=== PATIENT | female | born 1975 | race African-American/Black ===

== ENCOUNTER 2020-04-22 18:49 | Emergency (ER) | payer BC, SELFPAY ==
[2020-04-22 19:04] VITALS: BP 134/84; PULSE 105; RESP 14; TEMP 36.4; O2SAT 100
== END 2020-04-22 19:12 | disposition left against medical advice (07) ==
LOC: EXPBETH 18:59
PROVIDERS: Emergency Provider Nurse Practitioner
DX: Z53.21 Procedure and treatment not carried out due to patient leaving prior to being seen by health care provider (principal)
CPT/HCPCS: 99199

== ENCOUNTER 2022-03-03 19:34 | Emergency (ER) | payer OTHER, SELFPAY ==
--- NOTE | 2022-03-03 19:37 | ED.URI ---
HPI - URI/Sore Throat General Chief Complaint: Upper Respiratory Infection Stated Complaint: trouble breathing, productive cough Time Seen by Provider: 03/03/22 19:37 Source: patient and RN notes reviewed History of Present Illness HPI Narrative: patient is a 46-year-old female who presents to the Urgent Care with complaints of a cough for the last 3 weeks. Patient states that she has tried [id number] allergy medication and DayQuil and NyQuil. Patient states that it seems to be worse at night expression when she lays down causing severe coughing fits and difficulty catching her breath. Patient currently denies any shortness of breath or chest pains. Denies any known ill exposures. Denies any recent diagnosis of influenza or COVID. No other acute complaints. No acute distress noted. Patient aware of the plan care. Some parts of this dictation were generated by voice recognition software and may contain typographical and/or grammatical inaccuracies. Related Data Allergies Allergy/AdvReac Type Severity Reaction Status Date / Time No Known Allergies Allergy Verified 03/03/22 19:41 Review of Systems Review of Systems: CONSTITUTIONAL: Denies fever, chills, or sweats. EYES: Denies visual changes, redness, or discharge. ENT: Denies rhinorrhea, congestion, sore throat, or otalgia. CARDIOVASCULAR: Denies chest pain, palpitations, or edema. RESPIRATORY: reports of cough with coughing fits and intermittent dyspnea GASTROINTESTINAL: Denies abdominal pain, nausea, vomiting, or diarrhea. GENITOURINARY: Denies dysuria or hematuria. SKIN: Denies rash or itching. MUSCULOSKELETAL: Denies back pain, joint pain, or myalgia. NEUROLOGIC: Denies headache, numbness, or weakness. All other systems reviewed are negative, except as documented in HPI. PMFSH Comments At the time of my signature, I reviewed and agree with the nursing past medical, surgical, social, and family history. There is no relevant family history pertinent to the patient complaint. Exam Narrative: GENERAL: This is a well-nourished, well-developed patient, in no apparent distress. HEAD: normocephalic, atraumatic. EYES: PERRL. Sclera clear/white. Vision is grossly intact. EARS: External ears normal, auditory canals clear and without drainage, TMs normal without perforation. Hearing grossly intact. NOSE: External nose normal with no obvious nasal discharge, nares without redness, no rhinorrhea. THROAT: Mucous membranes moist, posterior pharynx clear. Moderate postnasal drainage NECK: Neck supple, non-tender without lymphadenopathy, masses or thyromegaly. CARDIOVASCULAR: Regular rate and rhythm without murmurs, gallops, or rubs. RESPIRATORY: Hoarseness cough noted on exam.Clear to auscultation. Breath sounds equal bilaterally. No wheezes, rales, or rhonchi. SKIN: warm, intact with no suspicious lesions or rash, good texture and turgor. NEURO: awake, alert, and oriented to person, place and time. There were no obvious focal neurologic abnormalities. EXTREMITIES: No clubbing, cyanosis, or edema. Course Course Level of Care: Express Care Visit Vital Signs Vital signs: Vital Signs Temperature 97.3 F L 03/03/22 19:38 Pulse Rate 88 03/03/22 19:38 Respiratory Rate 20 03/03/22 19:38 Blood Pressure 105/70 03/03/22 19:38 Pulse Oximetry 100 03/03/22 19:38 Oxygen Delivery Room Air 03/03/22 19:38 Temperature 97.3 F L 03/03/22 19:38 Pulse Rate 88 03/03/22 19:38 Respiratory Rate 20 03/03/22 19:38 Blood Pressure 105/70 03/03/22 19:38 Pulse Oximetry 100 03/03/22 19:38 Oxygen Delivery Room Air 03/03/22 19:38 Reviewed MDM - URI/Sore Throat MDM Narrative Medical decision making narrative: Advised the patient to complete the oral antibiotic regimen as prescribed. Be sure to eat and drink the medications. Complete steroid regimen as prescribed. Would advise starting steroid in the morning to avoid keeping you up at night. Use t
[2022-03-03 19:38] VITALS: BP 105/70; PULSE 88; RESP 20; TEMP 36.3; O2SAT 100
== END 2022-03-03 19:47 | disposition home or self-care (01) ==
PROVIDERS: Emergency Provider Nurse Practitioner Family
DX: J40 Bronchitis, not specified as acute or chronic (principal)
CPT/HCPCS: 99213; G0463

== ENCOUNTER 2023-03-22 19:49 | Emergency (ER) | payer BC, SELFPAY ==
[2023-03-22 19:50] VITALS: BP 130/88; PULSE 92; RESP 16; TEMP 36.4; O2SAT 100
--- NOTE | 2023-03-22 19:51 | ED.URI ---
HPI - URI/Sore Throat General Chief Complaint: Upper Respiratory Infection Stated Complaint: Cough/Congestion/Chills Time Seen by Provider: 03/22/23 19:51 Source: patient Mode of arrival: ambulatory Limitations: no limitations History of Present Illness HPI Narrative: Lorraine is a 47-year-old female patient presenting to the clinic today with complaints of cough, congestion, and chills x3 days. She reports chills of improve is still having cough and congestion is keeping her up at night. Denies any fever, sore throat, or body aches. MD elicited complaint: nasal congestion Related Data Allergies Allergy/AdvReac Type Severity Reaction Status Date / Time No Known Allergies Allergy Verified 03/22/23 19:52 Review of Systems Review of Systems: Pertinent positives per HPI. Patient denies any fever, chills, rash, headache, visual changes, dizziness, shortness of breath, chest pain, palpitations, nausea, vomiting, diarrhea, constipation, abdominal pain, or any urinary issues. PMFSH Comments At the time of my signature, I reviewed and agree with the nursing past medical, surgical, social, and family history. There is no relevant family history pertinent to the patient complaint. Exam Narrative: General: Well-developed, well nourished, in no apparent distress Head: Normocephalic, atraumatic Eyes: Pupils equally round and reactive to light bilaterally, EOM intact, sclera and conjunctive clear, no discharge, lids normal Ears: TMs intact and clear, ear canals clear, no drainage, grossly hearing normal. Right ear lobe mild swelling and redness-tender to palpation Nose: Nares patent, clear nasal discharge, mild inflammation, no sinus tenderness. Mouth: Oral pharynx without lesions or masses, good dentition, MMM. Neck: Supple, trachea midline, no enlargement of anterior or posterior cervical nodes, no thyroid masses or goiter palpable. Cardio: Regular rate and rhythm, s1 and s2 normal, no murmur appreciated. Resp: Clear to auscultation bilaterally, no rhonchi, rales, wheezing or rubs Course Course Emergency Course: Portions of this record may have been created with voice recognition software. Level of Care: Express Care Visit Vital Signs Vital signs: Vital signs reviewed MDM - URI/Sore Throat MDM Narrative Medical decision making narrative: At the time of visit patient is resting comfortably on the exam table. Offer to do COVID testing and patient declined. Patient would just like something for the cough. Prescription for Tessalon Perles was sent to the pharmacy. Patient is also concerned about a reoccurring ear lobe infection to the right ear. Prescription for mupirocin was sent to the pharmacy and supportive measures were discussed with the patient she voiced understanding of discharge instructions and agrees to treatment plan. Differential Diagnosis Differential diagnosis: Likely upper respiratory infection, otitis media, sinusitis, viral infection, bronchitis, influenza, pharyngitis and other (COVID) Discharge Plan Discharge Clinical Impression: Infection of skin of right ear lobe URI (upper respiratory infection) Qualifiers: URI type: unspecified URI Qualified Code(s): J06.9 - Acute upper respiratory infection, unspecified Patient Disposition: Home, Self-Care Condition: Stable Instructions: Antibiotic Form, Upper Respiratory Infection (ED) Additional Instructions: Take prescription medications only as prescribed-Tessalon Perles and mupirocin cream Increase fluids and stay well hydrated Tylenol/motrin for pain/fever Flonase and OTC antihistamines as directed Vicks vapor rub to open sinuses Sinus rinses for congestion Cepacol spray, cough drops, throat lozenges, warm tea with honey/lemon, gargle salt water to soothe throat BRAT diet for diarrhea Clear liquids x 24 hours then advance as tolerated for nausea/vomiting Go to the ED if you develop a worsening in your condition- h
== END 2023-03-22 20:08 | disposition home or self-care (01) ==
PROVIDERS: Emergency Provider Nurse Practitioner Family; PCP Internal Medicine
DX: J06.9 Acute upper respiratory infection, unspecified (principal); H60.391 Other infective otitis externa, right ear
CPT/HCPCS: 99213; G0463

== ENCOUNTER 2023-12-07 19:52 | Emergency (ER) | payer BC, SELFPAY ==
[2023-12-07 19:59] VITALS: BP 157/89; PULSE 79; RESP 15; O2SAT 79
--- NOTE | 2023-12-07 23:31 | ED.EYEPROB ---
HPI - Eye Problem General Chief complaint: Eye Problems Stated complaint: Right Eye Irritation Time Seen by Provider: 12/07/23 20:06 Source: patient, RN notes reviewed and old records reviewed Mode of arrival: ambulatory Limitations: no limitations History of Present Illness HPI Narrative: 40-year-old female to Express Care for complaint of right eye redness, tearing, pain, photosensitivity since upon wakening this morning. Patient states that she has attempted flush her eye several times with water and saline solution without relief. Patient endorses sensation of foreign body. Patient states that she has attempted to go to 3 other urgent cares today and was turned away because they were too full. Patient reports taking 600 mg ibuprofen prior to arrival. Patient denies prior injury, pertinent medical history, allergies, recent illness, potential known cause. Patient states that she sees an garde manger annually. Patient uncomfortable in exam room. Respirations even and nonlabored. Patient no acute distress. Related Data Allergies Allergy/AdvReac Type Severity Reaction Status Date / Time No Known Allergies Allergy Verified 03/22/23 19:52 Review of Systems Review of Systems: All systems reviewed & are unremarkable except as noted in HPI and below Constitutional: Constitutional: Reports no additional constitutional complaints Eyes: Eyes: Reports as per HPI, Denies change in vision, Denies diplopia, Reports eye discharge ( Right), Reports irritation ( right), Denies loss of peripheral vision, Denies loss of vision, Reports eye pain ( right) and Reports photophobia ( right) ENT: Reports system reviewed and no additional complaints, except as documented Cardiovascular: Cardiovascular: Reports no additional cardiovascular complaints, Denies chest pain and Denies dyspnea Respiratory: Respiratory: Reports no additional respiratory complaints, Denies cough and Denies dyspnea Musculoskeletal: Musculoskeletal: Reports no additional musculoskeletal complaints Neurologic: Reports system reviewed and no additional complaints, except as documented Psychiatric: Psychiatric: Reports no additional psychiatric complaints PMFSH Comments At the time of my signature, I reviewed and agree with the nursing past medical, surgical, social, and family history. There is no relevant family history pertinent to the patient complaint. Exam Const: General: cooperative, healthy appearing, no acute distress, alert, in distress moderate, uncomfortable and well nourished Nutritional Appearance: well nourished Orientation/consciousness: patient oriented x3 Limitations: no limitations HENMT: Head: normal to inspection Ears: external ears normal Face/Nose/Sinus: Normal external nose present, Normal nares present, normal facial exam, No erythema and No edema Face and sinus: normal facial exam, no erythema and no edema Mouth: Yes Normal oral and palatal mucosa present Eyes: Alignment and Position: alignment normal and position normal Periorbital: periorbital findings normal Eyelids: eyelids normal Conjunctivae: conjunctival abnormality right conjunctival injection diffuse and discharge mucoid Sclera: scleral abnormality right scleral exudate mucoid, scleral injection diffuse and scleral tenderness Cornea: corneas normal and fluorescein used Pupils: Equal, round and reactive pupils present, Pupils normal by confrontation and Pupil accommodation reflex normal Other: eye kit used. Prior to fluorescein staining, foreign body visualized and removed successfully. Fluorescein used with black light to confirm absence of corneal abnormalities. Patient reported relief of symptoms with tetracaine. I flushed extensively with saline solution. Patient tolerated procedure well and endorses no sensation of foreign body and improvement in pain Neck: Neck: normal visual inspection, full ROM and no meningeal signs Lymphatic: no lymphadenopathy noted and no
== END 2023-12-07 20:27 | disposition home or self-care (01) ==
PROVIDERS: Emergency Provider Nurse Practitioner Family; PCP Internal Medicine
DX: H57.11 Ocular pain, right eye (principal)
CPT/HCPCS: 99213; A9270; G0463

== ENCOUNTER 2024-03-10 12:40 | Emergency (ER) | payer BC, SELFPAY ==
--- NOTE | ~2024-03-10 | XR_ITS ---
Clinical Indication: Cough PA and lateral views of the chest: Comparison: None Findings: The lungs are clear, without evidence of focal consolidation or pleural effusion. Cardiome diastinal silhouette is within normal limits. Bones and soft tissues are unremarkable. Impression: Normal chest. Reviewed, dictated and finalized at location . R STANDARDS DIRECTOR Impression: Normal chest.
[2024-03-10 12:44] VITALS: BP 113/77; PULSE 111; RESP 20; TEMP 36.4; O2SAT 98
--- NOTE | 2024-03-10 13:01 | ED.GENADULT ---
HPI - General Adult General Chief complaint: Upper Respiratory Infection Stated complaint: cough/chest tight/wheezing Source: patient Mode of arrival: ambulatory Limitations: no limitations History of Present Illness HPI narrative: Patient presents for evaluation of sick symptoms. She reports a cough for about 1 week. Cough is productive of clear/white sputum. She denies any shortness of breath. She has experienced a sore throat but that is improving. No fever, chills, nausea, vomiting, diarrhea. No recent sick contacts to her knowledge. She does not smoke. She took TheraFlu but symptoms persist. Related Data Allergies Allergy/AdvReac Type Severity Reaction Status Date / Time No Known Allergies Allergy Verified 03/10/24 12:55 Review of Systems Review of Systems: CONSTITUTIONAL: Denies fever, chills, or sweats. EYES: Denies visual changes, redness, or discharge. ENT: Reports sore throat. Denies rhinorrhea, congestion, or otalgia. CARDIOVASCULAR: Denies chest pain, palpitations, or edema. RESPIRATORY: Reports cough. Denies SOB. GASTROINTESTINAL: Denies abdominal pain, nausea, vomiting, or diarrhea. GENITOURINARY: Denies dysuria or hematuria. SKIN: Denies rash or itching. MUSCULOSKELETAL: Denies back pain, joint pain, or myalgia. NEUROLOGIC: Denies headache, numbness, dizziness, or weakness. PSYCHIATRIC: Denies anxiety or depression. PMFSH Past Medical History Medical History No pertinent past medical history Surgical History Surgical History No pertinent past surgical history Family History Family History Mother Family history non-contributory Social History Social History Smoking status: Never smoker Alcohol intake: never Substance use: never Gender identity (if verbalized by the patient): Female Spiritual care concerns: No Exam Narrative: GENERAL: Well-appearing, well-nourished, and in no acute distress. HEAD: Normocephalic, atraumatic. EYES: PERRLA and EOMI. ENT: Nares clear, no rhinorrhea or epistaxis. Mucous membranes moist. There is posterior pharyngeal erythema without exudate. Uvula is midline. Bilateral TMs pearly [place] nonbulging NECK: Supple. No adenopathy or masses. No carotid bruits or JVD CHEST: Clear to auscultation. No respiratory distress. No wheezes rales or rhonchi HEART: Regular rate and rhythm. No murmur heard. Normal peripheral pulses. ABDOMEN: Soft, nontender, nondistended, normal active bowel sounds. EXTREMITIES: Normal range of motion. No edema. SKIN: Warm, dry, no rash. NEURO: No focal deficits. Alert and oriented x3. PSYCH: Normal mood and affect. Course Course Emergency Course: This is a 48-year-old female who presented for evaluation of respiratory symptoms. Chest x-ray negative. Exam is consistent with bronchitis. Will discharge with prednisone and albuterol. She may purchase intake dextromethorphan as needed for cough. She should follow-up with her primary provider and go to the emergency department for worsening symptoms. Patient is in agreement with plan of care. Level of Care: Express Care Visit Vital Signs Vital signs: Vital Signs Temperature 36.4 C 03/10/24 12:44 Pulse Rate 111 H 03/10/24 12:44 Respiratory Rate 20 03/10/24 12:44 Blood Pressure 113/77 03/10/24 12:44 Pulse Oximetry 98 03/10/24 12:44 Oxygen Delivery Room Air 03/10/24 12:44 Temperature 36.4 C 03/10/24 12:44 Pulse Rate 111 H 03/10/24 12:44 Respiratory Rate 20 03/10/24 12:44 Blood Pressure 113/77 03/10/24 12:44 Pulse Oximetry 98 03/10/24 12:44 Oxygen Delivery Room Air 03/10/24 12:44 Medical Decision Making Vital Signs Vital Signs: Vital Signs Temperature 36.4 C 03/10/24 12:44 Pulse Rate 111 H 03/10/24 12:44 Respiratory Rate 20 03/10/24 12:44 Blood Pressure 113/77 03/10/24 12:44 Pulse Oximetry 98 03/10/24 12:44 Oxygen Delivery Room Air 03/10/24 12:44 Temperature 36.4 C 03/10/24 12:44 Pulse Rate 111 H 03/10/24 12:44 Respiratory Rate 20 03/10/24 12:44 Blood Pressure 113/77 03/10/24 12:44 Pulse Oximetry 98 03/10/24 12:44 Oxygen Delivery Room Air 03/10/24 12:44 Imaging Data Radiologist's impression: Clinical Indication: Cough PA and lateral views of the chest: Comparison: None Findings: The lungs are clear, without evidence of focal consolidation or pleural effusion. Cardiomediastinal silhouette is within normal limits. Bones and soft tissues are unremarkable. Impression: Normal chest. Discharge Plan Discharge Clinical Impression: Bronchitis Patient Disposition: Home, Self-Care Condition: Stable Instructions: Antibiotic Form, Acute Bronchitis (ED) Additional Instructions: Make sure to stay well hydrated Delsym(Dextromethorphan) should help with cough Patient Language: [place] Prescriptions: New prednisone 50 mg tablet 50 mg PO DAILY Qty: 5 0RF albuterol sulfate 90 mcg/actuation HFA aerosol inhaler 2 puff inhalation QID PRN (Reason: shortness of breath or wheezing) Qty: 8.5 0RF Follow-up/Referrals: Ar,Vaughn Schaffer MD [Primary Care Provider] - Stand Alone Forms: Work/School Release IP Time of Disposition: 13:38
== END 2024-03-10 13:40 | disposition home or self-care (01) ==
PROVIDERS: Emergency Provider Nurse Practitioner; PCP Internal Medicine
DX: J40 Bronchitis, not specified as acute or chronic (principal)
CPT/HCPCS: 71046; 99213; G0463

== ENCOUNTER 2024-12-09 18:20 | Emergency (ER) | payer BC, SELFPAY ==
--- OUTSIDE RECORDS SUMMARY | 2024-12-09 18:23 | XMS_ITS | Clinical Summary ---
Author Organization [facility] Building [facility] Address [address] [place] [address] Care Team Providers Care Timber Sizer Name Role Phone Junie Hua MD Primary Care Provider Nathen Montalvo MD Unavailable [phone] Allergies No known active allergies Medications multivitamin with iron tablet Take 1 tablet by mouth daily Active estradioL (ESTRACE) 1 mg tablet Take 1 tablet (1 mg total) by mouth daily 90 tablet 3 06/24/2024 Active Active Problems Problem Noted Date Diagnosed Date Degeneration of intervertebral disc of lumbar re gion 12/09/2014 Overview (07/28/2016): Degenerative disc disease, lumbar Resolved Problems Problem Noted Date Diagnosed Date Resolved Date Uterine fibroid 05/22/2024 06/18/2024 Pelvic and perineal pain 03/06/2024 Dyspareunia, female 03/06/2024 06/18/19 Pelvic pressure in female 03/06/2024 Uterine leiomyoma 09/20/2023 06/18/2024 Assessment & Plan (04/01/2024 10:14 PM HR OPERATIONS ADVISOR): 16 wk enlarging fibroid uterus filling the pelvis with decreased mobility and lower uterine segment involvement. I recommend hysterectomy, and patient is ready for surgery. I discussed options of laparoscopic approach versus SAVANNAH. Given size of uterus and dominant 11 cm fibroid and lower segment involvement with need to morcellate, recommend proceeding with SAVANNAH. Patient prefers SAVANNAH as she desires specimen removed intact. Will consider BSO. I have discussed benefits, alternatives and risks including bleeding, infection, anesthesia risk, risk of injury to bowel, bladder, ureter or blood vessel. Patient wishes to proceed. Nature of procedure and recovery discussed. Assessment & Plan (09/20/2023 2:55 PM CDT): Patient presents today for discussion of large, fibroid uterus. She only experiences intermittent pelvic pressure and discomfort. She did decline pelvic exam today. We are going to repeat her ultrasound at the end of September which will be 3 months from her initial scan to check stability of the fibroid. Her cycles are manageable and she is not really having any consistent discomfort. I do think it is reasonable to conservatively manage. If she would develop changes in her cycle or intensity of pain, surgical intervention may be warranted. The patient is agreeable to the plan. Further plan will be pending her ultrasound results at the end of September. She will call with any further questions or concerns. Surgical History Surgery Date Site/Laterality Comments MOHS SURGERY HYSTEROSCOPY 05/22/2024 total abdominal OOPHORECTOMY 05/21/2024 Bilateral SALPINGECTOMY 05/21/2024 Bilateral Social History Tobacco Use Types Packs/Day Years Used Date Smoking Tobacco: Never Smokeless Tobacco: Never Tobacco Cessation:Counseling Given: Not Answered [facility] Utilities Answer Date Recorded In the past 12 months has [employer], gas, oil, or water [employer] threatened to shut off services in your home? No 05/24/2024 Social Connection and Isolation Panel Answer Date Recorded In a typical week, how many times do you talk on the phone with family, friends, or neighbors? More than three times a week 05/24/2024 How often do you get togethe r with friends or relatives? More than three times a week 05/24/2024 How often do you attend chur ch or yazdanism services? Never 05/24/2024 Do you belong to any clubs o r organizations such as restoration groups, unions, fraternal or athletic groups, or school groups? No 05/24/2024 How often do you attend meet ings of the clubs or organizations you belong to? Never 05/24/2024 Are you , , di vorced, , never , or living with a partner? 05/24/2024 AUDIT-C Answer Date Recorded Q1: How often do you have a drink containing alc ohol? Monthly or less 05/22/2024 Q2: How many drinks containi ng alcohol do you have on a typical day when you are drinking? 1 or 2 05/22/2024 Q3: How often do you have si x or more drinks on one occasion? Never 05/22/2024 Overall Financial Resource Strain (CARDIA) Answe r Date Recorded How hard is it for you to pa y for the very basics like food, housing, medical care, and heating? Not hard at all 05/24/2024 PHQ-2 Answer Date Recorded PHQ-2 Total Score (If total score is 3 or more points, staff should administer the PHQ-9) 0 09/20/2023 Hunger Vital Sign Answer Date Recorded Within the past 12 months, y ou worried that your food would run out before you got the money to buy more. Never true 05/24/19 25 Within the past 12 months, t he food you bought just didn't last and you didn't have money to get more. Never true 05/24/2024 PRAPARE - Transportation Answer Date Re corded In the past 12 months, has l ack of transportation kept you from medical appointments or from getting medications? No 04/26 In the past 12 months, has l ack of transportation kept you from meetings, work, or from getting things needed for daily living? No 05/24/2024 Housing Stability Vital Sign Answer Kemal e Recorded In the last 12 months, was t here a time when you were not able to pay the mortgage or rent on time? No 05/24/2024 In the past 12 months, how m any times have you moved where you were living? 0 05/24/2024 At any time in the past 12 m [facility], were you homeless or living in a fdc (including now)? No 05/24/2024 Personal Safety Answer Date Recorded Have you ever been in or are you currently in a harmful physical or emotional relationship or is someone making you feel afraid or unsafe? Denies 05/22/2024 Comments No Sex and Gender Information Value Date Recorded Sex Assigned at Not on file Legal Sex Female 2:14 PM HR OPERATIONS ADVISOR Gender Identity Not on file Sexual Orientation Not on file Obstetrics History Para Term AB IAB SAB Ectopic Multiple Livin g Live Births 0 0 0 0 0 0 0 0 0 0 0 Last Filed Vital Signs Vital Sign Reading Time Taken Comments Blood Pressure 120/82 07/22/2024 8:16 AM CDT Pulse 82 05/24/2024 7:45 AM HR OPERATIONS ADVISOR Temperature 36.3 C (97.3 F) 05/24/2024 7:45 AM HR OPERATIONS ADVISOR Respiratory Rate 18 05/24/2024 7:45 AM HR OPERATIONS ADVISOR Oxygen Saturation 99% 05/24/2024 7:45 AM HR OPERATIONS ADVISOR Inhaled Oxygen Concentration - - Weight 76.7 kg (169 lb) 09/06/2024 8:18 AM CDT Height 162.6 cm (5' 4) 09/06/2024 8:18 AM CDT Body Mass Index 29.01 09/06/2024 8:18 AM CDT Plan of Treatment Health Maintenance Due Date Last Done Comments Colon Cancer Screening-Colonoscopy 1975 Hepatitis C Screening 1975 DTaP/Tdap/Td Vaccine (1 - Tdap) 1986 Hepatitis B Screening 1993 Regular Well Visit/Exam 18-64 1993 Covid-19 Vaccine (3 - 2023-2 5 season) 2023 10/28/2020, 10/07/2020 Depression Screening 09/19/2024 09/20/2023 Influenza Vaccine (#1) 2024 , 02/18/2020, 12/31/2014 Breast Cancer Screening-Mammogram 09/06/2025 09/06/2024, 05/19/2023, 05/19/2023 Pneumococcal vaccine <65 Aged Out No longer eligible based on patient's age to complete this topic Procedures Procedure Name Priority Date/Time Associated Diagnosis Comments DIAGNOSTIC MAMMOGRAM BILATERAL W GERARD Schedule Routine, Read Routine (OP Routine) 09/06/2024 8:34 AM CDT Abnormal mammogram of left breast from Last 3 Months or Most Recently Relevant to Health Maintenance Results * DIAGNOSTIC MAMMOGRAM BILATERAL W GERARD (09/06/2024 8:34 AM CDT) Anatomical Region Laterality Modality Breast Bilateral Mammography 09/06/2024 10:0 9 AM CDT Impressions 09/06/2024 10:09 AM CDT Bilateral simple and minimally complicated cysts are benign. No mammographic or sonographic evidence of malignancy. OVERALL FINAL ASSESSMENT: BI-RADS Category 2: Benign. RECOMMENDATION: Annual screening mammography is recommended. Electronically signed by: Karol Isbell M.D. Narrative 09/06/2024 10:09 AM CDT EXAMINATION: BILATERAL DIGITAL DIAGNOSTIC MAMMOGRAM INCLUDING CAD AND BILATERAL DIGITAL BREAST TOMOSYNTHESIS; BILATERAL BREAST SONOGRAM HISTORY: Abnormal screening study of 15 months ago, additionally, follow-up lesions dating back to 2018 COMPARISON: 05/19/2023, 07/14/2017 TECHNIQUE: Full field digital mammographic views of BOTH breasts were performed, including computer aided detection (CAD) and BILATERAL digital breast tomosynthesis (DBT). Directed ultrasound evaluation of BOTH breasts was performed. BREAST PARENCHYMAL COMPOSITION: The breasts are heterogeneously dense, which may obscure small masses. MAMMOGRAM FINDINGS: Circumscribed left breast lesions are identified at the 4 o'clock position and 11 o'clock position of the left breast. Additionally, asymmetry at the 3 o'clock position is again identified. These findings are new or more prominent than on the previous available study. No new dominant density or suspicious microcalcification is appreciated on the right. Previous right breast cystic cluster is unchanged in appearance. SONOGRAM FINDINGS: Targeted bilateral breast ultrasound Targeted right breast ultrasound was performed in the region of interest. At the 10 o'clock position 4 cm from the nipple there is a lobulated cystic lesion measuring 9 mm x 5 mm x 6 mm. This is benign. Targeted left breast ultrasound was performed in the regions of interest. Again identified at the 3 o'clock position 3 cm from the nipple is a hypoechoic cystic lesion measuring 5 mm. This has not significantly changed and is benign. At the 4 o'clock position 3 cm from the nipple there is an oval simple cyst measuring 2.5 cm. This is larger than on the previous study but has a simple appearance and is benign. At the 6 o'clock position 4 cm from the nipple there is an oval hypoechoic cystic lesion measuring 1.2 cm. This is benign. At the 11 o'clock position 4 cm from the nipple there is a 1.4 cm hypoechoic cyst. This correlates with the mammographic finding and is benign. Nathen Montalvo MD IMG MAMMO PROCEDURES Final Result from Last 3 Months or Most Recently Relevant to Health Maintenance Insurance ANTHEM ACCESS CHOICE ANTHEM ACCESS CHOICE Advance Directives For more information, please contact: [phone] * Full Code (Latest Code Status on File) Date Activated Date Inactivated Comments 05/22/2024 12:59 PM 05/24/2024 6:43 PM Care Teams Timber Sizer Relationship Specialty Start Date End Date Junie Hua MD PCP - General Family Medicine 07/25/23 Nathen Montalvo MD [address] [place] [id number] Civil Structural Engineer Obstetrics and Gynecology 05/24/24
--- OUTSIDE RECORDS SUMMARY | 2024-12-09 18:23 | XMS_ITS | Clinical Summary ---
Author Organization [facility] Address [address] [place] [address] Phone Care Team Providers Care Management Instructor Name Role Phone Vaughn Joyner MD Primary Care Provider [phone] Allergies No known active allergies Medications diclofenac (VOLTAREN) 50 MG Tablet Delayed Response Take 1 Tablet by mouth 2 times daily as needed for Mild or more severe pain. 60 Tablet 3 08/22/2023 Active etodolac (LODINE) 400 MG Tablet Take 1 Tablet by mouth 2 times daily. With food. 30 Tablet 09/07/2023 Active Active Problems No known active problems Family History Medical History Relation Name Comments No Known Problems Brother No Known Problems Father No Known Problems Mother No Known Problems Sister Relation Name Status Comments Brother Alive Father Alive Mother Alive Sister Alive Social History Tobacco Use Types Packs/Day Years Used Date Smoking Tobacco: Never Passive Smoke Exposure: Never Smokeless Tobacco: Never Tobacco Cessation:Counseling Given: No Alcohol Use Standard Drinks/Week Comments No 0 (1 standard drink = 0.6 oz pur e alcohol) [facility] Utilities Answer Date Recorded In the past 12 months has [employer] electric, gas, oil, or water company threatened to shut off services in your home? No 08/20/2023 Social Connection and Isolation Panel Answer Date Recorded In a typical week, how many times do you talk on the phone with family, friends, or neighbors? More than three times a week 08/20/2023 How often do you get togethe r with friends or relatives? More than three times a week 08/20/2023 How often do you attend chur or catholic services? Patient declined 08/20/2023 Do you belong to any clubs o r organizations such as moravian groups, unions, fraternal or athletic groups, or school groups? Patient declined 08/20/2023 How often do you attend meet ings of the clubs or organizations you belong to? Patient declined 08/20/2023 Are you , , di vorced, , never , or living with a partner? Patient declined 08/20/2023 AUDIT-C Answer Date Recorded Q1: How often do you have a drink containing alc ohol? Patient declined 08/20/2023 Q2: How many drinks containi ng alcohol do you have on a typical day when you are drinking? Patient declined 08/20/2023 Q3: How often do you have si x or more drinks on one occasion? Patient declined 08/20/2023 Overall Financial Resource Strain (CARDIA) Answe r Date Recorded How hard is it for you to pa y for the very basics like food, housing, medical care, and heating? Patient declined 08/20/2023 PHQ-2 Answer Date Recorded Total Score - Questions 1-9 0 07/25 [facility] - Occupational Stress Questionnaire Answer Date Recorded Do you feel stress - tense, restless, nervous, or anxious, or unable to sleep at night because your mind is troubled all the time - these days? Not at all 08/20/2023 Exercise Vital Sign Answer Date Recorde d On average, how many days pe r week do you engage in moderate to strenuous exercise (like a brisk walk)? 3 days 08/20/2023 On average, how many minutes do you engage in exercise at this level? 30 min 08/20/2023 Hunger Vital Sign Answer Date Recorded Within the past 12 months, y ou worried that your food would run out before you got the money to buy more. Patient declined Within the past 12 months, t he food you bought just didn't last and you didn't have money to get more. Patient declined PRAPARE - Transportation Answer Date Re corded In the past 12 months, has l ack of transportation kept you from medical appointments or from getting medications? No 07/24 In the past 12 months, has l ack of transportation kept you from meetings, work, or from getting things needed for daily living? No 08/20/2023 Housing Stability Vital Sign Answer Kemal e Recorded In the last 12 months, was t here a time when you were not able to pay the mortgage or rent on time? Patient declined 08/20/19 24 Number of Places Lived in the Last Year Not on f ile 08/20/2023 In the last 12 months, was t here a time when you did not have a steady place to sleep or slept in a fdc (including now)? Patient declined 08/20/2023 Sexually Active Control Partners Comments Yes Comments No Sex and Gender Information Value Date Recorded Sex Assigned at Not on file Legal Sex Female 11:38 PM CDT Gender Identity Not on file Sexual Orientation Not on file Last Filed Vital Signs Vital Sign Reading Time Taken Comments Blood Pressure 114/70 08/22/2023 2:44 PM CDT Pulse 64 08/22/2023 2:44 PM CDT Temperature 36.5 C (97.7 F) 08/22/2023 2:44 PM CDT Respiratory Rate 18 01/18/2017 12:48 PM CDT Oxygen Saturation 99% 08/22/2023 2:44 PM CDT Inhaled Oxygen Concentration - - Weight 74.4 kg (164 lb) 08/22/2023 2:44 PM CDT Height 162.6 cm (5' 4) 08/22/2023 2:44 PM CDT Body Mass Index 28.15 08/22/2023 2:44 PM CDT Plan of Treatment Health Maintenance Due Date Last Done Comments Hepatitis C Virus (HCV) Screening 1975 TdaP Immunization 1975 Hepatitis B Immunization (1 of 3 - 19+ 3-dose series) 1994 HPV/Cotest 2005 Cologuard 2020 Colonoscopy 2020 Colorectal Cancer Screening 2020 Immunochemical Fecal Occult Blood 2020 SARS-COV-2 Immunization ( season) 2023 Mammogram 05/19/2024 05/19/2023, 05/19/2023 Influenza Immunization (#1) 12/23/202401/22, 02/18/2020 Cervical Cancer Screening (CCS) 08/08/2026 Pap Smear 08/08/2026 08/09/2023 Respiratory Syncytial Virus (RSV) Immunization (Adult) (1 - 1-dose 75+ series) 2050 Discussion re Starting/Frequency of Mammograms Completed 05/19/2023 Human Papillomavirus (HPV) Immunization Aged Out No longer eligible b ased on patient's age to complete this topic Meningococcal Immunization (ACWY) Aged Out No longer eligible b ased on patient's age to complete this topic Pneumococcal Immunization Combined Aged Out No longer eligible b ased on patient's age to complete this topic Rotavirus Immunization Aged Out No lo nger eligible based on patient's age to complete this topic Insurance [address], [place] [id number] [place] [address] Care Teams Management Instructor Relationship Specialty Start Date End Date Vaughn Joyner MD PCP - General Internal Medicine 07/05/22
--- OUTSIDE RECORDS SUMMARY | 2024-12-09 18:23 | XMS_ITS | Clinical Summary ---
Author Organization [facility] Address [address] [place] [address] Care Team Providers Care Activity Director Name Role Phone Unavailable Primary Care Provider Unavailabl e Encounters Date Type Department Care Team Description 11/26/2024 External Device Data ST[facility] ABSTRACTION Provider, Abstract 11/06/2024 External Device Data [facility] ABSTRACTION Provider, Abstract 11/05/2024 External Device Data [facility] ABSTRACTION Provider, Abstract 10/08/2024 External Device Data [facility] ABSTRACTION Provider, Abstract 09/12/2024 External Device Data [facility] ABSTRACTION Provider, Abstract 09/11/2024 External Device Data ST[facility] ABSTRACTION Provider, Abstract 09/10/2024 External Device Data ST[facility] ABSTRACTION Provider, Abstract from Last 3 Months Social History Tobacco Use Types Packs/Day Years Used Date Smoking Tobacco: Never Assessed Comments Unknown Sex and Gender Information Value Date Recorded Sex Assigned at Not on file Legal Sex Female 5:43 PM INDUSTRIAL ROOFER Gender Identity Not on file Sexual Orientation Not on file Plan of Treatment Health Maintenance Due Date Last Done Comments DTAP/TDAP/TD VACCINES (1 - Tdap) 1994 HEPATITIS B VACCINES (1 of 3 - 19+ 3-dose series) 1994 HPV/Cotest (21-29) 1996 CERVICAL CANCER SCREENING 2005 HPV/Cotest (30-65) 2005 PAP SMEAR 2005 COLORECTAL SCREENING 2020 Colorectal Cancer Screening 2020 FIT-DNA Q 3 years 2020 FIT/FOBT Q 1 year 2020 Flex Sig/CT Colonography Q 5 years 2020 BREAST CANCER SCREENING 05/19/2024 05/19/19 24, 05/04/2020, 05/04/2020, Additional history exists INFLUENZA VACCINE (#1) 2024 Procedures Procedure Name Priority Date/Time Associated Diagnosis Comments MAMMO 3D GERARD SCREEN BILAT W OR WO CAD Routine 05/19/2023 1:09 PM INDUSTRIAL ROOFER Breast cancer screening by mammogram from Last 3 Months or Most Recently Relevant to Health Maintenance Results * MAMMO 3D GERARD SCREEN BILAT W OR WO CAD (05/19/2023 1:09 PM INDUSTRIAL ROOFER) Anatomical Region Laterality Modality Breast Bilateral Mammography 05/19/2023 1:10 PM INDUSTRIAL ROOFER Impressions 05/19/2023 1:15 PM INDUSTRIAL ROOFER IMPRESSION: Left outer breast mass. Recommend evaluation with a left outer breast ultrasound. OVERALL BIRADS CATEGORY:0 (incomplete - needs additional imaging evaluation). A letter will be sent to patient. Narrative 05/19/2023 1:15 PM INDUSTRIAL ROOFER EXAM: MAMMO 3D GERARD SCREEN BILAT W OR WO CAD STUDY DATE: 05/19/2023 1:09 PM CLINICAL INDICATION: 48 years old female presents for routine screening mammography. COMPARISON: Prior mammograms, the most recent dated 05/04/2020 PROCEDURE: CC and MLO digital mammographic views of the bilateral breasts are obtained. Computer Aided Detection (CAD) was utilized. Tomosynthesis was done with all views. FINDINGS: Breast Density: Heterogeneously dense, which may lower the sensitivity of mammography. Right breast: There are scattered stable subcentimeter masses in the right breast. There are no spiculated masses, suspicious microcalcifications or areas of architectural distortion in the right breast. Left breast: There is a partially obscured mass in the left outer lower breast at posterior depth, new since the prior study. There are no spiculated masses, suspicious microcalcifications or areas of architectural distortion in the left breast. Johnathan Joyner MD MAMMO ORDERABLES Final Result from Last 3 Months or Most Recently Relevant to Health Maintenance Insurance [facility] BLUE ACCESS
--- OUTSIDE RECORDS SUMMARY | 2024-12-09 18:23 | XMS_ITS | Clinical Summary ---
Author Organization [facility] Address [address] [place] [address] Care Team Providers Care Cdc Associate Name Role Phone Unavailable Primary Care Provider Unavailabl e Source Comments [facility],non-owned Affiliates and Associated Physician Practices is amultiple site organization consisting of ambulatory clinics and hospital sitesin [place], [place], [place] and [place]. This disclosure is being madepursuant to the Care Everywhere program and may not contain all information available regarding this patient. Last updated 18.[facility] [employer] Allergies No known active allergies Medications * Be aware that medications may not be up to date on this document. Alwaysverify current medications with the patient. triamcinolone acetonide (KENALOG) 0.5 % cream Apply to affected area 2 times daily. 15 g 0 07/24/2014 Active cyclobenzaprine (FLEXERIL) 10 MG tablet Take 10 mg by mouth 3 times daily as needed for Muscle Spasms Active hydrOXYzine hcl (ATARAX) 50 MG tablet Take 1 Tab by mouth every 8 hours as needed for Itching 30 Tab 0 11/27/2015 Active Active Problems Problem Noted Date Diagnosed Date Infection of skin of ear lobe 07/24/2014 Pain in head 04/30/2009 Social History Tobacco Use Types Packs/Day Years Used Date Smoking Tobacco: Never Alcohol Use Standard Drinks/Week Comments Yes 0 (1 standard drink = 0.6 oz pur e alcohol) social/rare Comments Unknown Sex and Gender Information Value Date Recorded Sex Assigned at Not on file Legal Sex Female 6:30 AM CONSUMER INSIGHT MANAGER Gender Identity Not on file Sexual Orientation Not on file Last Filed Vital Signs Vital Sign Reading Time Taken Comments Blood Pressure 101/67 11/27/2015 9:54 PM CDT Pulse 91 11/27/2015 9:54 PM CDT Temperature 36.7 C (98 F) 11/27/2015 9:54 PM CDT Respiratory Rate 12 11/27/2015 9:54 PM CDT Oxygen Saturation 100% 11/27/2015 9:54 PM CDT Inhaled Oxygen Concentration - - Weight 63 kg (139 lb) 11/27/2015 9:18 PM CDT Height 162.6 cm (5' 4) 11/27/2015 9:18 PM CDT Body Mass Index 23.86 11/27/2015 9:18 PM CDT Plan of Treatment Health Maintenance Due Date Last Done Comments COLOGUARD (AGES 45-75) - COL ON CA SCREENING 1975 COLON MONITORING 1975 COLONOSCOPY - COLON CA SCREENING 1975 CT COLONOGRAPHY - COLON CA SCREENING 1975 Colorectal Cancer Screening 1975 FIT - COLON CA SCREENING 1975 FLEX SIG - COLON CA SCREENING 1975 LIPID TESTING 1975 HIV SCREENING 1990 HEPATITIS C SCREENING 04/19/1993 DTAP/TDAP/TD VACCINES (1 - Tdap) 1994 HEPATITIS B VACCINE (1 of 3 - 19+ 3-dose series) 1994 PAP SMEAR 1996 COVID-19 VACCINE (2023-2 5 season) 2023 DEPRESSION SCREENING 2024 INFLUENZA VACCINE (#1) 2024 ZOSTER VACCINE (1 of 2) 2025 MAMMOGRAM 05/19/2025 05/19/2023 HIB VACCINE Aged Out No longer eligi ble based on patient's age to complete this topic HPV VACCINE Aged Out No longer eligi ble based on patient's age to complete this topic MENINGOCOCCAL (Group B) VACC INE SHARED DECISION-MAKING Aged Out No longer eligibl e based on patient's age to complete this topic MENINGOCOCCAL GROUPS A/C/Y/W VACCINE Aged Out No longer eligible b ased on patient's age to complete this topic Procedures Procedure Name Priority Date/Time Associated Diagnosis Comments MAMMOGRAM 05/19/2023 from Last 3 Months or Most Recently Relevant to Health Maintenance Results * MAMMOGRAM (05/19/2023) Anatomical Region Laterality Modality Other 05/19/2023 Narrative 05/19/2023 Ordered by an unspecified provider. us Scanned Document SCANNING ONLY Final Result from Last 3 Months or Most Recently Relevant to Health Maintenance Insurance [facility]
[2024-12-09 18:26] VITALS: BP 113/81; PULSE 82; RESP 16; TEMP 36.7; O2SAT 100
[2024-12-09 18:47] LABS: EDSTREPNEGPOS1 Negative (Negative)
--- NOTE | 2024-12-09 19:22 | ED_ITS ---
HPI - URI/Sore Throat General Chief Complaint: Upper Respiratory Infection Stated Complaint: shortness of breath Time Seen by Provider: 12/09/24 19:05 Source: patient and RN notes reviewed Mode of arrival: ambulatory Limitations: no limitations History of Present Illness HPI Narrative: For 9-year-old female presents [facility] complaining of sore throat, congestion, voice hoarseness, cough for proximally 3 days. Patient is a fevers body aches, chills, nausea vomiting, diarrhea, chest pain, shortness of breath, or any other symptoms. Patient says her cough is worse at night and reports that her throat at night. Patient also believes she has contact dermatitis from working outside, she works for [employer] said on the job site of tick double lot of dust that she believes is irritating her skin. Patient has not tried any [id number] to help with the skin irritation. Patient has been taking Tylenol with some relief. Related Data Home Medications ?Medication ?Instructions ?Recorded ?Confirmed ?Last Taken ?Type estradiol 1 mg tablet mg 12/09/24 Unknown History Allergies Allergy/AdvReac Type Severity Reaction Status Date / Time No Known Allergies Allergy Verified 12/09/24 18:37 Review of Systems Review of Systems: CONSTITUTIONAL: Denies fever, chills, body aches, or sweats. EYES: Denies visual changes, redness, or discharge. ENT: Positive for rhinorrhea, congestion, sore throat. Negative for otalgia. CARDIOVASCULAR: Denies chest pain, palpitations, or edema. RESPIRATORY: Positive for cough. Negative for dyspnea or wheezing. GASTROINTESTINAL: Denies abdominal pain, nausea, vomiting, or diarrhea. GENITOURINARY: Denies dysuria or hematuria. SKIN: Positive for rash and itching. MUSCULOSKELETAL: Denies back pain, joint pain, or myalgia. NEUROLOGIC: Denies headache, numbness, or weakness. PSYCHIATRIC: Denies anxiety or depression. All other systems reviewed are negative, except as documented in HPI. [facility] Past Medical History Medical History No pertinent past medical history Surgical History Surgical History No pertinent past surgical history Family History Family History Mother Family history non-contributory Social History Social History Smoking status: Never smoker Alcohol intake: never Substance use: never Gender identity (if verbalized by the patient): Female Spiritual care concerns: No Comments At the time of my signature, I reviewed and agree with the nursing past medical, surgical, social, and family history. There is no relevant family history pertinent to the patient complaint. Exam Narrative: GENERAL: This is a well-nourished, well-developed adult, in no apparent distress. They are non ill-appearing, nontoxic appearing. HEAD: normocephalic, atraumatic. EYES: Sclera clear/white. Vision is grossly intact. Conjunctiva normal bilaterally. Extraocular movements intact. EARS: External ears normal, auditory canals clear and without drainage, TMs without erythema or perforation. Hearing grossly intact. NOSE: External nose normal with no obvious nasal discharge, nasal turbinates erythematous, no rhinorrhea. THROAT: Mucous membranes moist, posterior pharynx erythematous without exudate. Uvula is midline. Postnasal drip present. NECK: Neck supple, non-tender without lymphadenopathy, masses or thyromegaly. CARDIOVASCULAR: Regular rate and rhythm without murmurs, gallops, or rubs. RESPIRATORY: Clear to auscultation. Breath sounds equal bilaterally. No wheezes, rales, or rhonchi. SKIN: Pruritic erythematous papular rash scantly scattered to the patient's left lateral neck and left lower arm and right lower arm. No area of fluctuance, no induration, no exudate. Rashes nontender. NEURO: awake, alert, and oriented to person, place and time. There were no obvious focal neurologic abnormalities. EXTREMITIES: No joint tenderness, effusion, or edema noted. BACK: Nontender without deformity. Course Course Emergency Course: Portions of this record may have been created with voice recognition software Level of Care: Express Care Visit Vital Signs Vital signs: Vital Signs Temperature 98.1 F 12/09/24 18:26 Pulse Rate 82 12/09/24 18:26 Respiratory Rate 16 12/09/24 18:26 Blood Pressure 113/81 12/09/24 18:26 Pulse Oximetry 100 12/09/24 18:26 Oxygen Delivery Room Air 12/09/24 18:26 Temperature 98.1 F 12/09/24 18:26 Pulse Rate 82 12/09/24 18:26 Respiratory Rate 16 12/09/24 18:26 Blood Pressure 113/81 12/09/24 18:26 Pulse Oximetry 100 12/09/24 18:26 Oxygen Delivery Room Air 12/09/24 18:26 MDM - URI/Sore Throat MDM Narrative Medical decision making narrative: Rapid strep negative. Throat culture pending. Symptoms likely viral bronchitis. Will prescribe patient Medrol Dosepak. Patient also has contact dermatitis, will prescribe triamcinolone cream. Discussed physical exam findings. Advised supportive measures and signs/symptoms to go to the ER. Pt is appropriate for outpt treatment and f/u. Differential Diagnosis Differential diagnosis: Likely upper respiratory infection, sinusitis, viral infection, bronchitis and pharyngitis Lab Data Attestation: I reviewed the patient's lab results. Labs: Lab Results 12/09/24 Range/Units 18:34 POC Grp A Strep Screen Negative (Negative) Discharge Plan Discharge Clinical Impression: Bronchitis Contact dermatitis Qualifiers: Contact dermatitis type: unspecified Contact dermatitis trigger: unspecified trigger Qualified Code(s): L25.9 - Unspecified contact dermatitis, unspecified cause Patient Disposition: Home Condition: Stable Instructions: Antibiotic Form, Acute Bronchitis (ED) Additional Instructions: Your rapid strep swab was negative today at [facility]. You will be notified in a few days if the culture comes back positive for strep, and appropriate antibiotics will be called in for you at that time. Your symptoms are likely due to a viral illness, which is not treated with antibiotics. Viral symptoms can be present for up to 10-14 days. Take Tylenol or ibuprofen for fever or pain. Follow instructions on the bottle. Rest and stay hydrated. Take the Medrol Dosepak as directed. Follow up with your PCP in 3-5 days if symptoms are not improving. Go to the ER immediately if you develop difficulty breathing or swallowing Patient Language: [place]itanian Prescriptions: New methylprednisolone 4 mg tablets,dose pack See Rx Instructions .ROUTE .COMPLEX Qty: 21 0RF Rx Instructions: for 6 days triamcinolone acetonide 0.1 % cream 1 applic topical BID 7 Days Qty: 15 0RF Rx Instructions: Apply to the affected area. No Action estradiol 1 mg tablet Follow-up/Referrals: Joyner,Vaughn Schaffer MD [Primary Care Provider] - Stand Alone Forms: Work/School Release IP Time of Disposition: 19:12
== END 2024-12-09 19:17 | disposition home or self-care (01) ==
PROVIDERS: PCP Internal Medicine
DX: J40 Bronchitis, not specified as acute or chronic (principal); L25.9 Unspecified contact dermatitis, unspecified cause
CPT/HCPCS: 87081; 87880; 99213; G0463